=== PATIENT | female | born 1935 | race Caucasian/White ===

== ENCOUNTER 2018-02-14 09:39 | Outpatient (CLI) | payer MEDICARE, OTHER | END 2018-02-14 09:40 | disposition home or self-care (01) | LOC: BICMAMMO 09:39 | PROVIDERS: ATTEND Family Medicine | DX: Z12.31 Encounter for screening mammogram for malignant neoplasm of breast (principal) | CPT/HCPCS: 77063; 77067 ==

== ENCOUNTER 2018-02-25 14:48 | Outpatient (CLI) | payer MEDICARE, OTHER ==
--- NOTE | 2018-02-25 17:50 | BD ---
BONE DENSITOMETRY USING DEXA: Date: 02/25/18 HISTORY: Postmenopausal screening for osteoporosis. FINDINGS: Lumbar Spine: BMD (g/cm2) L1 0.885 T-Score: -1.0 Z-Score: 1.5 L2 1.005 T-Score: -0.2 Z-Score: 2.5 L3 0.958 T-Score: -1.1 Z-Score: 1.7 L4 0.933 T-Score: -1.2 Z-Score: 1.7 L1-L4 0.946 T-Score: -0.9 Z-Score: 1.8 Femoral Neck: 0.642 T-Score: -1.9 Z-Score: 0.5 Total Femur: 0.817 T-Score: -1.0 Z-Score: 1.1 The 10 year fracture risk for a major osteoporotic fracture is 15% and for a hip fracture is 4.3%. IMPRESSION: Osteopenia. POS: [facility]
== END 2018-02-25 14:49 | disposition home or self-care (01) ==
LOC: BICMAMMO 14:48
PROVIDERS: ATTEND Family Medicine
DX: M81.0 Age-related osteoporosis without current pathological fracture (principal); M85.89 Other specified disorders of bone density and structure, multiple sites
CPT/HCPCS: 77080

== ENCOUNTER 2019-01-07 12:21 | Outpatient (CLI) | payer MEDICARE, OTHER ==
--- NOTE | 2019-01-07 13:14 | RAD ---
XR Lumbar Spine 2 Or 3 View HISTORY: Acute midline low back pain without sciatica. Fall one month ago FINDINGS: There is a compression fracture of L1 vertebral body with anterior wedging of the superior endplate. No subluxation is identified. Degenerative changes are present
--- NOTE | 2019-01-07 13:33 | RAD ---
EXAM: 3 views of the thoracic spine HISTORY: Acute mid low back pain after fall one month ago COMPARISON: None FINDINGS: 3 views of the thoracic spine shows wedge compression deformity of the T10 vertebral body w ith approximately 25% height loss. The other vertebral bodies demonstrate normal height without evidence of fracture. No subluxation is seen. IMPRESSION: T10 compression fracture
== END 2019-01-07 12:22 | disposition home or self-care (01) ==
LOC: BICRAD 12:21
PROVIDERS: ATTEND Physician Assistant
DX: M54.5 Low back pain (principal); S22.079A Unspecified fracture of T9-T10 vertebra, initial encounter for closed fracture
CPT/HCPCS: 72072; 72100; 87086

== ENCOUNTER 2019-01-23 08:29 | Outpatient (CLI) | payer MEDICARE, OTHER ==
--- NOTE | 2019-01-23 13:55 | NM ---
NUCLEAR MEDICINE BRAIN IMAGING: HISTORY: Parkinson's disease TECHNIQUE: A Whit scan with axial tomographic images of the brain was obtained 3 hours following the intravenous administration of 4.3mCi I-123 Ioflupane. The patient was pretreated with 130 mg of oral potassium iodide 1 hour prior to the injection. FINDINGS: There is loss of uptake in the right posterior striata. Normal comma shaped uptake is seen on the lef t. IMPRESSION: Parkinsonian syndrome. (Parkinsonian syndromes include Parkinson's disease, multiple system atrophy, progressive supranuclea r palsy, dementia with Lewy bodies and cortical basal degeneration).
== END 2019-01-23 08:30 | disposition home or self-care (01) ==
LOC: NM 08:29
PROVIDERS: ATTEND Psychiatry & Neurology Neurology
DX: G20 Parkinson's disease (principal)
CPT/HCPCS: 78607; A9584

== ENCOUNTER 2019-03-06 15:02 | Outpatient (CLI) | payer MEDICARE, OTHER ==
--- NOTE | 2019-03-06 15:37 | RAD ---
THORACIC SPINE 2 VIEWS: HISTORY: Low back pain. Thoracic fracture. COMPARISON: Thoracic spine radiographs 01/17/2019. FINDINGS: There are compression fractures of T10 and L1 with similar height loss. Approximately 15% height los s of T10 and 20% anterior height loss of the L1 compression fractures. Mild superior end plate irregularity of T11. IMPRESSION: Similar appearance to the thoracolumbar fractures. No further progression. POS: [facility]
--- NOTE | 2019-03-06 15:39 | RAD ---
LUMBAR SPINE 2 VIEWS: HISTORY: Low back pain. Thoracolumbar fracture. COMPARISON: Radiograph of 01/07/2019. FINDINGS: Similar appearance of the L1 compression deformity with approximately 20% anterior height loss. The remainder of the lumbar spine is without fracture. Mild narrowing intraspinous space of L3-4. Moderate narrowing of the L4-5 and L5-S1 disk spaces. No significant listhesis. IMPRESSION: Similar appearance to the L1 compression deformity. POS: [facility]
== END 2019-03-06 15:03 | disposition home or self-care (01) ==
LOC: TBSIIMAG 15:02
PROVIDERS: ATTEND Neurological Surgery
DX: S22.009A Unspecified fracture of unspecified thoracic vertebra, initial encounter for closed fracture (principal); S32.009A Unspecified fracture of unspecified lumbar vertebra, initial encounter for closed fracture; M43.8X6 Other specified deforming dorsopathies, lumbar region
CPT/HCPCS: 72070; 72100

== ENCOUNTER 2019-10-29 12:42 | Outpatient (CLI) | payer MEDICARE, OTHER ==
--- NOTE | 2019-10-29 13:57 | MMO ---
Bilateral MAMMO Bilat Screen [facility]. CLINICAL HISTORY: Patient is 83 years old and is seen for screening. The patient has no family history of breast cancer. The patient has no personal history of cancer. VIEWS: The views performed were: bilateral craniocaudal with tomosynthesis and bilateral mediolateral oblique with tomosynthesis. FILMS COMPARED: The present examination has been compared to prior imaging studies performed at [facility] on 02/14/2018, and at [facility] on 02/28/2013, 03/02/2014 and 03/04/2015. This study has been interpreted with the assistance of computer-aided detection. MAMMOGRAM FINDINGS: There are scattered fibroglandular densities. There are no suspicious masses, suspicious calcifications, or new areas of architectural distortion. IMPRESSION: THERE IS NO MAMMOGRAPHIC EVIDENCE OF MALIGNANCY. A ROUTINE FOLLOW-UP MAMMOGRAM IN 1 YEAR IS RECOMMENDED. THE RESULTS OF THIS EXAM WERE SENT TO THE PATIENT. ACR BI-RADS Category 1 - Negative MAMMOGRAPHY NOTE: 1. A negative mammogram report should not delay a biopsy if a dominant of clinically suspicious mass is present. 2. Approximately 10% to 15% of breast cancers are not detected by mammography. 3. Adenosis and dense breasts may obscure an underlying neoplasm. Reported by: JIM PULIDO MD Electonically Signed: [id number]
== END 2019-10-29 12:43 | disposition home or self-care (01) ==
LOC: BICMAMMO 12:42
PROVIDERS: ATTEND Family Medicine
DX: Z12.31 Encounter for screening mammogram for malignant neoplasm of breast (principal)
CPT/HCPCS: 77063; 77067

== ENCOUNTER 2024-03-03 10:56 | Outpatient (CLI) | payer MEDICARE | END 2024-03-03 10:57 | disposition home or self-care (01) | LOC: BICMAMMO 10:56 | PROVIDERS: ATTEND Family Medicine | DX: Z12.31 Encounter for screening mammogram for malignant neoplasm of breast (principal) | CPT/HCPCS: 77063; 77067 ==

== ENCOUNTER 2024-12-08 08:58 | Outpatient (CLI) | payer MEDICARE | END 2024-12-08 08:59 | disposition home or self-care (01) | LOC: RAD 08:58 | PROVIDERS: ATTEND Student in an Organized Health Care Education/Training Program | DX: G20.C Parkinsonism, unspecified (principal); R13.19 Other dysphagia | CPT/HCPCS: 74230 ==